=== PATIENT | female | born 1990 | race Caucasian/White ===

== ENCOUNTER → 2023-12-06 09:54 | Outpatient (REF) | payer BC, SELFPAY | LOC: RAD 09:54 | PROVIDERS: ATTENDING PHYSICIAN Family Medicine; FAMILY PHYSICIAN Family Medicine | DX: S09.90XA Unspecified injury of head, initial encounter (principal); S09.92XA Unspecified injury of nose, initial encounter; M54.2 Cervicalgia; M62.838 Other muscle spasm | CPT/HCPCS: 70150; 72050 ==

== ENCOUNTER → 2024-05-04 07:31 | Outpatient (REF) | payer BC, SELFPAY | LOC: RAD 07:31 | PROVIDERS: ATTENDING PHYSICIAN Nurse Practitioner Family | DX: R22.31 Localized swelling, mass and lump, right upper limb (principal) | CPT/HCPCS: 73090; 73120 ==

== ENCOUNTER → 2024-06-05 06:52 | Outpatient (REF) | payer BC, SELFPAY | LOC: RAD 06:52 | PROVIDERS: ATTENDING PHYSICIAN Nurse Practitioner Family; FAMILY PHYSICIAN Family Medicine | DX: R22.31 Localized swelling, mass and lump, right upper limb (principal) | CPT/HCPCS: 76882 ==

== ENCOUNTER → 2025-01-18 16:52 | Outpatient (REF) | payer BC, SELFPAY | LOC: RAD 16:52 | PROVIDERS: ATTENDING PHYSICIAN Family Medicine | DX: R76.12 Nonspecific reaction to cell mediated immunity measurement of gamma interferon antigen response without active tuberculosis (principal) | CPT/HCPCS: 71046 ==